=== PATIENT | female | born 1950 ===

== ENCOUNTER 2021-09-08 09:49 | Outpatient (CLI) | payer MEDICARE, OTHER ==
--- NOTE | 2021-09-08 13:29 | DEXA Report ---
PROCEDURE: Dexa Spine and/or Hip INDICATIONS: SCREENING FOR OSTEOPOROSIS TECHNIQUE: Dual energy x-ray absorptiometry (DXA) was performed on a [employer] System. Regions measur ed are the AP Spine, femoral neck, and if needed forearm. COMPARISON: None. FINDINGS: Lumbar Spine: Bone Mineral Density 0.986 g/cm/cm,T score -1.8, osteopenia Left Hip: Bone Mineral Density 0.873 g/cm/cm,T score -1.1, osteopenia Left Femoral Neck: Bone Mineral Density 0.757 g/cm/cm, T score -2.0, osteopenia (T score greater or equal to -1.0: NORMAL) (T score from -1.1 to -2.4: OSTEOPENIA) (T score less than or equal to -2.5 to: OSTEOPOROSIS) Impression: Osteopenia. Patients with diagnosis of osteoporosis or osteopenia should have regular bone mineral density assess ment. For those eligible for Medicare, routine testing is allowed once every 2 years. Testing frequ ency can be increased for patients who have rapidly progressing disease or for those who are receivin g medical therapy to restore bone mass. Reviewed by: Janneth Hall MD, PhD on 09/08/2021 1:28 PM PDT Approved by: Janneth Hall MD, PhD on 09/08/2021 1:28 PM PDT Station ID: [id number]
== END 2021-09-08 09:50 | disposition home or self-care (01) ==
LOC: DI 09:49
PROVIDERS: ATTEND Naturopath
DX: Z13.820 Encounter for screening for osteoporosis (principal); M85.89 Other specified disorders of bone density and structure, multiple sites

== ENCOUNTER 2022-08-26 09:37 | Outpatient (CLI) | payer MEDICARE, OTHER ==
--- NOTE | 2022-09-01 12:18 | Mammography Report ---
BILATERAL DIGITAL SCREENING MAMMOGRAM 3D/2D: 08/26/2022 CLINICAL: Routine screening. Comparison is made to exams dated: 12/28/2018 mammogram, 09/19/2016 mammogram, and 12/31/2012 mammogra m - [facility]. Both breasts are heterogeneously dense, which may obscure small masses (category c / 51-75% glandular tissue). No significant masses, calcifications, or other findings are seen in either breast. There has been no significant interval change. IMPRESSION: NEGATIVE There is no mammographic evidence of malignancy. A 1 year screening mammogram is recommended. Based on the Tyrer Cuzick model (a risk assessment model) the patients lifetime risk is 6.6% and her 10 year risk is 4.5%. According to the ACR, ACS, and NCCN guidelines, an annual breast MRI exam steve g with mammogram is recommended if the patients lifetime risk is 20% or greater. This exam was interpreted at Station ID: [id number]. NOTE: For mammograms, a report in lay terms will be sent to the patient. Approximately 15% of breast malignancies will not be visualized mammographically. In the management of a palpable breast mass, a negative mammogram must not discourage biopsy of a clinically suspicious lesion. Electronically Signed By: Hank teran/renny:08/31/2022 17:52:50 letter sent: No_Letter ACR BI-RADS Category 1: Negative 3341F PARENCHYMAL PATTERN: (D) - The breast(s) demonstrate(s) heterogeneously dense fibroglandular jonatan lawler. BI-RADS CATEGORY: (1) - 1 Mammogram [id number] 1 year screening LATERALITY: (B)
== END 2022-08-26 09:38 | disposition home or self-care (01) ==
LOC: DI 09:37
PROVIDERS: ATTEND Naturopath
DX: Z12.31 Encounter for screening mammogram for malignant neoplasm of breast (principal)

== ENCOUNTER 2022-09-07 08:46 | Day surgery (SDC) | payer MEDICARE, OTHER ==
[2022-09-07] MEDS ORDERED: LACTATED RINGERS 1,000 ML IV ONE ×2 (09:05→10:33)
--- NOTE | 2022-09-07 09:15 | ANESTHESIA ---
Pre-Anesthesia VS, & Labs - Diagnosis history of polyps - Procedure colonoscopy - NPO Other (prep as direct) - Is Patient ?: No Home Medications and Allergies Home Medications: Ambulatory Orders Albuterol Sulf [Ventolin Hfa Inhaler] 1 inh INH PRN PRN 09/06/22 Azathioprine [Azasan] 0.5 tab PO DAILY 09/06/22 Citalopram [CeleXA] 40 mg PO DAILY 09/06/22 Estradiol [Estrace] 1 applic TOP QID 09/06/22 Fluticasone Propion/Salmeterol [Wixela 250-50 Inhub] 1 applic INH DAILY 09/06/22 Fluticasone/Salmeterol [Advair 250-50 Diskus] 1 applic INH BID 09/06/22 Hydroxychloroquine Sulfate 200 mg PO DAILY 09/06/22 NIFEdipine [Nifedipine ER] 1 tab PO DAILY 09/06/22 Progesterone, Micronized [Prometrium] 1 cap PO DAILY 09/06/22 Thyroid [Ambia Thyroid] 1 tab PO DAILY 09/06/22 buPROPion HCL [Bupropion Xl] 1 tab PO DAILY 09/06/22 Albuterol Sulf [Ventolin Hfa Inhaler] 1 inh INH PRN PRN 09/06/22 Azathioprine [Azasan] 0.5 tab PO DAILY 09/06/22 Citalopram [CeleXA] 40 mg PO DAILY 09/06/22 Estradiol [Estrace] 1 applic TOP QID 09/06/22 Fluticasone Propion/Salmeterol [Wixela 250-50 Inhub] 1 applic INH DAILY 09/06/22 Fluticasone/Salmeterol [Advair 250-50 Diskus] 1 applic INH BID 09/06/22 Hydroxychloroquine Sulfate 200 mg PO DAILY 09/06/22 NIFEdipine [Nifedipine ER] 1 tab PO DAILY 09/06/22 Progesterone, Micronized [Prometrium] 1 cap PO DAILY 09/06/22 Thyroid [Ambia Thyroid] 1 tab PO DAILY 09/06/22 buPROPion HCL [Bupropion Xl] 1 tab PO DAILY 09/06/22 Allergies/Adverse Reactions: Allergies Allergy/AdvReac Type Severity Reaction Status Date / Time codeine Allergy Rash Verified 09/06/22 12:39 Alcohol AdvReac Unknown Uncoded 09/06/22 12:40 Narcotics AdvReac Unknown Uncoded 09/06/22 12:40 Anes History & Medical History - Anesthetic History Anesthesia Complications: reports: No previous complications - Medical History Cardiovascular: reports: Hypertension Pulmonary: reports: Asthma, COPD Endocrine/Autoimmune: reports: HyPOthyroidism Skin: reports: Other Psychosocial: reports: Alcohol (recovered alcoholic) - Surgical History General: reports: Colonoscopy Exam General: Alert, Oriented x3, Cooperative Dental: WNL, Other (top are capped, and bottom permenant bridge) Mouth Opening: Greater than 4 Fingerbreadths Mallampati classification: I Thyromental Distance: greater than 6 cm Respiratory: Lungs clear Cardiovascular: Regular rate Plan Anesthesia Type: Total IV Consent for Procedure(s) Verified and Reviewed: Yes Code Status: Attempt Resuscitation ASA classification: 3-Severe systemic disease Is this case an emergency?: No
[2022-09-07] MEDS ORDERED: PROPOFOL 500 MG/50 ML 500 MG/50 ML VIAL ONE (10:00)
[2022-09-07] MEDS ORDERED: LIDOCAINE-PF 2% 10 ML AMP SUBQ ONE (10:09)
[2022-09-07 10:36] VITALS: BP 104/48
--- NOTE | 2022-09-07 14:12 | ANESTHESIA POST OP EVALUATION ---
Anesthesia Post Eval - Post Anesthesia Eval Vitals: Last Vital Signs Temp 36.1 C L 09/07/22 10:33 Pulse 58 L 09/07/22 10:33 Resp 16 09/07/22 10:33 BP 104/48 L 09/07/22 10:33 Pulse Ox 99 09/07/22 10:33 O2 Flow Rate 0 09/07/22 09:05 CV Function Including HR & BP: Stable Pain Control: Satisfactory Nausea & Vomiting: Negative Mental Status: Baseline Respiratory Status: Airway Patent Hydration Status: Satisfactory Anesthesia Complications: None
== END 2022-09-07 08:47 | disposition home or self-care (01) ==
LOC: SDS 08:46
PROVIDERS: ATTEND Surgery
DX: Z12.11 Encounter for screening for malignant neoplasm of colon (principal); K64.1 Second degree hemorrhoids; J44.9 Chronic obstructive pulmonary disease, unspecified; I10 Essential (primary) hypertension; Z86.010 Personal history of colon polyps; Z87.891 Personal history of nicotine dependence
CPT/HCPCS: G0121; J7120

== ENCOUNTER 2023-11-15 08:42 | Outpatient (CLI) | payer MEDICARE, OTHER ==
--- NOTE | 2023-11-15 16:59 | Ultrasound Report ---
PROCEDURE: Aorta Screening INDICATIONS: SMOKING GREATER THAN 20 PACK YEARS TECHNIQUE: Real time scanning was performed of the aorta and iliac arteries, with image documentatio n. COMPARISON: None. FINDINGS: Aorta: Proximal aortic diameter measures 2.7 cm. Mid-aorta measures 2.2 cm. Distal aortic diameter is 1.8 cm. Atherosclerotic plaque throughout. Iliac arteries: Right common iliac artery measures 1.2 cm. Left common iliac artery measures 1.2 cm . Atherosclerotic plaques throughout. High velocities within the right proximal common iliac artery measuring 374 cm/s, consistent greater than 50% stenosis. IMPRESSION: 1.No abdominal aneurysm. Mild ectasia of the proximal abdominal aorta. Recommend 5 year follow-up ult rasound. 2.Elevated velocities within the right proximal common iliac artery consistent with greater than 50% stenosis. Recommended intervals for follow-up imaging of ectatic aortas and abdominal aortic aneurysms, per ACR consensus guidelines: 2.5-2.9 cm: 5 years 3.0-3.4 cm: 3 years 3.5-3.9 cm: 2 years 4.0-4.4 cm: 1 year 4.5-4.9 cm: 6 months + endovascular referral 5.0-5.5 cm: 3-6 months + endovascular referral Reviewed by: Javad Gutierrez MD on 11/15/2023 4:58 PM PDT Approved by: Javad Gutierrez MD on 11/15/2023 4:58 PM PDT Station ID: [id number]
== END 2023-11-15 08:43 | disposition home or self-care (01) ==
LOC: DI 08:42
PROVIDERS: ATTEND Family Medicine
DX: Z13.6 Encounter for screening for cardiovascular disorders (principal); I77.811 Abdominal aortic ectasia; I70.8 Atherosclerosis of other arteries; F17.210 Nicotine dependence, cigarettes, uncomplicated